=== PATIENT | male | born 1995 | race Caucasian/White ===

== ENCOUNTER 2021-12-13 20:02 | Emergency (ER) | payer MEDICAID | END 2021-12-13 21:08 | disposition home or self-care (01) | LOC: JP.ED 20:02 | DX: S43.401A Unspecified sprain of right shoulder joint, initial encounter (principal); Z72.0 Tobacco use; W18.30XA Fall on same level, unspecified, initial encounter | CPT/HCPCS: 73030-26-RT; 73030-RT; 99281; 99283-25 ==